=== PATIENT | male | born 1955 | race Caucasian/White ===

== ENCOUNTER 2017-07-31 00:43 | Emergency (ER) | payer OTHER ==
[~2017-07-31] VITALS: Ht 182.9 cm; Wt 75.8 kg
[2017-07-31 00:55] VITALS: TEMP 37.1; Ht 182.9 cm; Wt 75.8 kg
[2017-07-31] MEDS ORDERED: LISI-787 PO (01:09)
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
[2017-07-31 03:11] VITALS: BP 136/78; PULSE 52; O2SAT 93
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
== END 2017-07-31 03:12 | disposition home or self-care (01) ==
LOC: C.EDB 00:45 → EDBD 00:45 → C.EDC 03:12
DX: S01.01XA Laceration without foreign body of scalp, initial encounter (principal); F10.920 Alcohol use, unspecified with intoxication, uncomplicated; W22.8XXA Striking against or struck by other objects, initial encounter; I10 Essential (primary) hypertension; Z83.3 Family history of diabetes mellitus; Z82.49 Family history of ischemic heart disease and other diseases of the circulatory system; F17.200 Nicotine dependence, unspecified, uncomplicated